=== PATIENT | female | born 1980 | race Native Hawaiian/Other Pacific Islander ===

== ENCOUNTER 2017-11-28 16:36 | Outpatient (CLI) | payer BC | END 2017-11-28 23:59 | disposition home or self-care (01) | LOC: RESP 16:36 | DX: R00.0 Tachycardia, unspecified (principal) | CPT/HCPCS: 93005 ==

== ENCOUNTER 2017-12-11 08:47 | Outpatient (CLI) | payer BC | END 2017-12-11 19:01 | disposition home or self-care (01) | LOC: RESP 08:47 | DX: R00.0 Tachycardia, unspecified (principal) | CPT/HCPCS: 93306 ==

== ENCOUNTER 2018-11-08 10:25 | Outpatient (CLI) | payer OTHER | END 2018-11-08 21:39 | disposition home or self-care (01) | LOC: LABW 10:25 | DX: N95.9 Unspecified menopausal and perimenopausal disorder (principal) | CPT/HCPCS: 36415; 82670; 84402; 84403; 84439; 84443 ==